=== PATIENT | male | born 1945 | race Caucasian/White ===

== ENCOUNTER 2022-01-15 02:47 | Inpatient (IN) | payer MEDICARE ==
[2022-01-15] MEDS ORDERED: Ondansetron PF 4 MG/2 ML Vial ONE ×2 (03:36→16:41)
[2022-01-15] MEDS ORDERED: Morphine 4 MG/ML VIAL ONE (03:36)
[2022-01-15 03:39] LABS: #Neutrophils 8.3 10x3/uL (1.5-8.4); %Basophils 0.4 % (0.0-2.0); %Eosinophils 0.4 % (0.0-6.0); %Lymphocytes 10.2 % (18.0-47.0); %Monocytes 9.5 % (0.0-10.0); %Neutrophils 79.2 % (40.0-75.0); Hemoglobin 10.9 g/dL (13.5-17.5); Mean Corpuscular HGB CONC 30.8 g/dL (32.0-36.0); Mean Corpuscular Hemoglobin 21.9 pg (27.0-33.0); Mean Corpuscular Volume 71.1 fl (81.2-95.1); Platelet Count 294 10x3/uL (150-450); Red Blood Cell (RBC) Count 4.98 10x6/uL (4.32-5.72); White Blood Cell (WBC) Count 10.5 10x3/uL (3.5-10.5)
[2022-01-15 03:48] LABS: ALT (SGPT) 17 U/L (8-55); AST (SGOT) 19 U/L (5-34); Albumin 4.4 g/dL (3.4-4.8); Alkaline Phosphatase 101 U/L (40-110); Anion Gap 15 mmol/L (10-20); BUN (Urea Nitrogen) 28 mg/dL (8.4-25.7); Bilirubin, Total 0.6 mg/dL (0.2-1.2); Calc. Creatinine Clearance 0 mL/min (70-130); Calcium 9.3 mg/dL (7.8-10.44); Carbon Dioxide 22 mmol/L (23-31); Chloride 107 mmol/L (98-107); Estimated GFR 39; Glucose 118 mg/dL (83-110); Potassium 3.8 mmol/L (3.5-5.1); Protein, Total 7.4 g/dL (5.8-8.1); Sodium 140 mmol/L (136-145)
[2022-01-15 05:31] LABS: Bilirubin Neg (Negative); Blood, Urine 250 (Negative); Clarity Clear (Clear); Glucose, Urine (Dipstick) Normal (Negative); Ketone, Urine 5 mg/dL (Negative); Leukocyte 100 (Negative); Nitrite Negative (Negative); Protein, Urine (Dipstick) 30 mg/dl (Neg-Trace); Urobilinogen Normal mg/dL (Less than 2)
[2022-01-15 05:50] LABS: Bacteria/HPF Rare-Few HPF (None Seen); Mucous/LPF 1+ LPF (<2+); RBC/HPF 21-50 HPF (0-3)
[2022-01-15] MEDS ORDERED: Morphine 2 MG/ML VIAL ONE (06:40)
[2022-01-15 08:44] LABS: PTT 25.9 sec (22.0-33.0); Prothrombin Time 11.2 sec (9.5-12.1)
[2022-01-15 08:59] VITALS: BMI 32.5
[2022-01-15] MEDS ORDERED: Iopamidol 370 76% 100 ML VIAL ONE (10:00)
[2022-01-15] MEDS ORDERED: Morphine 4 MG/ML VIAL SLOW IVP SCH (10:00)
[2022-01-15] MEDS ORDERED: hydrALAZINE 20 MG/ML VIAL SLOW IVP SCH (10:00)
[2022-01-15 10:03] LABS: SARS-CoV-2 NAA Rapid Test Not Detected (NotDetected)
[2022-01-15] MEDS ORDERED: Ondansetron PF 4 MG/2 ML Vial IVP PRN (10:06)
[2022-01-15] MEDS ORDERED: Ondansetron ODT 4 MG TAB PO PRN (10:06)
[2022-01-15] MEDS ORDERED: Acetaminophen 325 MG TAB PO PRN (10:06)
[2022-01-15] MEDS ORDERED: Pantoprazole 40 MG VIAL IVP SCH (10:09)
[2022-01-15] MEDS ORDERED: Morphine 4 MG/ML VIAL SLOW IVP PRN (10:10)
[2022-01-15] MEDS ORDERED: Electrolyte Replacement Protocol 1 EACH FS SCH (10:15)
[2022-01-15] MEDS: cefTRIAXone\\ROCEPHIN 2 GM in Sodium Chloride 0.9% 100 ML IVPB SCH (10:58)
[2022-01-15] MEDS: Sodium Chloride 0.9% 1,000 ML IV SCH ×2 (11:07→20:45)
[2022-01-15] MEDS: hydrALAZINE 20 MG/ML VIAL SLOW IVP PRN (16:26)
[2022-01-15] MEDS ORDERED: Fentanyl 100 MCG/2 ML VIAL ONE ×2 (16:41→17:57)
[2022-01-15] MEDS ORDERED: Dexamethasone 20 MG/5 ML VIAL ONE (16:41)
[2022-01-15] MEDS ORDERED: PROPOFOL 20 ML ONE (16:41)
[2022-01-15] MEDS ORDERED: Lidocaine 1% PF 5 ML VIAL ONE (16:42)
[2022-01-15] MEDS ORDERED: PHENYLEPHRINE-NS 100 MCG/ML 10 ML SYRINGE ONE ×2 (17:29→17:41)
[2022-01-15] MEDS ORDERED: Levofloxacin 500 mg/D5W 100 ml Premix Bag ONE (17:37)
[2022-01-15] MEDS ORDERED: Phenylephrine 10 MG/ML VIAL ONE (17:51)
[2022-01-15] MEDS ORDERED: Oxybutynin 5 MG TAB PO PRN (18:11)
[2022-01-15] MEDS ORDERED: HYDROcodone/Acetaminophen 5/325 mg Tablet PO PRN (18:11)
[2022-01-15] MEDS ORDERED: HYDROcodone/Acetaminophen 7.5/325 mg Tablet PO PRN ×2 (18:11)
[2022-01-15] MEDS ORDERED: Phenazopyridine HCl 95 MG TAB PO PRN (18:11)
[2022-01-15] MEDS: Docusate 100 MG CAP PO SCH (20:43)
[2022-01-16] MEDS: Sodium Chloride 0.9% 1,000 ML IV SCH ×4 (02:10→20:51)
[2022-01-16 05:02] LABS: #Monocytes 0.2 10x3/uL (0.0-1.1); #Neutrophils 5.4 10x3/uL (1.5-8.4); %Basophils 0.2 % (0.0-2.0); %Lymphocytes 6.7 % (18.0-47.0); %Monocytes 3.9 % (0.0-10.0); %Neutrophils 88.9 % (40.0-75.0); Hemoglobin 9.6 g/dL (13.5-17.5); Mean Corpuscular HGB CONC 30.4 g/dL (32.0-36.0); Mean Corpuscular Hemoglobin 21.8 pg (27.0-33.0); Mean Corpuscular Volume 71.7 fl (81.2-95.1); Platelet Count 275 10x3/uL (150-450); RBC Distribution Width 18.8 % (11.5-14.5); Red Blood Cell (RBC) Count 4.41 10x6/uL (4.32-5.72); White Blood Cell (WBC) Count 6.1 10x3/uL (3.5-10.5)
[2022-01-16 05:16] LABS: Phosphorus 4.4 mg/dL (2.3-4.7)
[2022-01-16 05:25] LABS: Anion Gap 12 mmol/L (10-20); BUN (Urea Nitrogen) 18 mg/dL (8.4-25.7); Calc. Creatinine Clearance 123 mL/min (70-130); Calcium 8.7 mg/dL (7.8-10.44); Carbon Dioxide 23 mmol/L (23-31); Chloride 109 mmol/L (98-107); Estimated GFR 91; Glucose 112 mg/dL (83-110); Potassium 4.4 mmol/L (3.5-5.1); Sodium 140 mmol/L (136-145)
[2022-01-16] MEDS ORDERED: Magnesium 2 GM/50 ML(in water) 2 GM in Premix Bag 1 BAG IVPB SCH (06:15)
[2022-01-16] MEDS ORDERED: Nitroglycerin 0.4 MG TAB (25 Tab Bottle) SL PRN (09:09)
[2022-01-16] MEDS: Docusate 100 MG CAP PO SCH ×2 (09:24→20:50)
[2022-01-16] MEDS: cefTRIAXone\\ROCEPHIN 2 GM in Sodium Chloride 0.9% 100 ML IVPB SCH (09:24)
[2022-01-16] MEDS: Tamsulosin HCl 0.4 MG CAP PO SCH (09:24)
[2022-01-16] MEDS: Dutasteride 0.5 MG CAP PO SCH (09:26)
[2022-01-16] MEDS ORDERED: Aspirin 81 mg Enteric Coated Tablet PO SCH (09:30)
[2022-01-16] MEDS ORDERED: Losartan Potassium 50 MG TAB PO SCH (09:30)
[2022-01-16] MEDS ORDERED: TICAGRELOR 90 MG TABLET PO SCH (09:30)
[2022-01-16] MEDS: Rosuvastatin 20 MG TAB PO SCH (20:50)
[2022-01-16] MEDS: TICAGRELOR 90 MG TABLET PO SCH (20:50)
[2022-01-16] MEDS: Stress 600 With Zinc 1 TAB PO SCH (20:50)
[2022-01-16] MEDS: Latanoprost 0.005% Ophth Soln 2.5 ml Bottle EA EYE SCH (20:50)
[2022-01-17 05:45] LABS: #Eosinphils 0.1 10x3/uL (0.0-0.5); #Monocytes 0.9 10x3/uL (0.0-1.1); #Neutrophils 5.1 10x3/uL (1.5-8.4); %Basophils 0.4 % (0.0-2.0); %Eosinophils 0.8 % (0.0-6.0); %Lymphocytes 22.1 % (18.0-47.0); %Monocytes 11.9 % (0.0-10.0); %Neutrophils 64.5 % (40.0-75.0); Hemoglobin 9.4 g/dL (13.5-17.5); Mean Corpuscular Hemoglobin 22.3 pg (27.0-33.0); Mean Corpuscular Volume 71.8 fl (81.2-95.1); Platelet Count 295 10x3/uL (150-450); RBC Distribution Width 19.2 % (11.5-14.5); Red Blood Cell (RBC) Count 4.22 10x6/uL (4.32-5.72); White Blood Cell (WBC) Count 7.9 10x3/uL (3.5-10.5)
[2022-01-17 06:03] LABS: Anion Gap 11 mmol/L (10-20); BUN (Urea Nitrogen) 25 mg/dL (8.4-25.7); Calc. Creatinine Clearance 119 mL/min (70-130); Calcium 8.5 mg/dL (7.8-10.44); Carbon Dioxide 25 mmol/L (23-31); Chloride 111 mmol/L (98-107); Estimated GFR 90; Glucose 100 mg/dL (83-110); Magnesium 2.1 mg/dL (1.6-2.6); Potassium 3.9 mmol/L (3.5-5.1); Sodium 143 mmol/L (136-145)
[2022-01-17] MEDS: Stress 600 With Zinc 1 TAB PO SCH ×2 (08:55→20:31)
[2022-01-17] MEDS: Ascorbic Acid 500 mg Chewable Tablet PO SCH (08:55)
[2022-01-17] MEDS: Finasteride 5 MG TAB PO SCH (08:55)
[2022-01-17] MEDS: Docusate 100 MG CAP PO SCH ×2 (08:55→20:31)
[2022-01-17] MEDS: Tamsulosin HCl 0.4 MG CAP PO SCH (08:55)
[2022-01-17] MEDS: Aspirin 81 mg Enteric Coated Tablet PO SCH (08:55)
[2022-01-17] MEDS: TICAGRELOR 90 MG TABLET PO SCH ×2 (08:56→20:31)
[2022-01-17] MEDS: Cholecalciferol 1,000 UNITS (25 MCG) TAB PO SCH (08:56)
[2022-01-17] MEDS: Ubidecarenone 50 MG CAP PO SCH (08:58)
[2022-01-17] MEDS: Dutasteride 0.5 MG CAP PO SCH (08:59)
[2022-01-17] MEDS ORDERED: Losartan Potassium 50 MG TAB PO SCH (09:00)
[2022-01-17] MEDS: Levothyroxine Sodium 100 MCG TAB PO SCH (09:06)
[2022-01-17] MEDS: cefTRIAXone\\ROCEPHIN 2 GM in Sodium Chloride 0.9% 100 ML IVPB SCH (09:11)
[2022-01-17] MEDS: Rosuvastatin 20 MG TAB PO SCH (20:31)
[2022-01-17] MEDS: Latanoprost 0.005% Ophth Soln 2.5 ml Bottle EA EYE SCH (20:32)
[2022-01-18] MEDS: hydrALAZINE 20 MG/ML VIAL SLOW IVP PRN (03:45)
[2022-01-18 05:09] LABS: #Eosinphils 0.2 10x3/uL (0.0-0.5); #Monocytes 0.9 10x3/uL (0.0-1.1); #Neutrophils 5.1 10x3/uL (1.5-8.4); %Basophils 0.5 % (0.0-2.0); %Eosinophils 2.3 % (0.0-6.0); %Lymphocytes 20.6 % (18.0-47.0); %Monocytes 11.5 % (0.0-10.0); %Neutrophils 64.7 % (40.0-75.0); Hemoglobin 9.9 g/dL (13.5-17.5); Mean Corpuscular HGB CONC 30.2 g/dL (32.0-36.0); Mean Corpuscular Hemoglobin 21.7 pg (27.0-33.0); Mean Corpuscular Volume 71.8 fl (81.2-95.1); Mean Platelet Volume 9.9 fl (7.4-10.4); Platelet Count 327 10x3/uL (150-450); RBC Distribution Width 19.1 % (11.5-14.5); Red Blood Cell (RBC) Count 4.57 10x6/uL (4.32-5.72); White Blood Cell (WBC) Count 7.8 10x3/uL (3.5-10.5)
[2022-01-18] MEDS ORDERED: Losartan Potassium 50 MG TAB PO SCH (05:15)
[2022-01-18 05:25] LABS: Anion Gap 12 mmol/L (10-20); BUN (Urea Nitrogen) 15 mg/dL (8.4-25.7); Calc. Creatinine Clearance 133 mL/min (70-130); Carbon Dioxide 24 mmol/L (23-31); Chloride 109 mmol/L (98-107); Estimated GFR 93; Glucose 103 mg/dL (83-110); Magnesium 1.9 mg/dL (1.6-2.6); Potassium 3.4 mmol/L (3.5-5.1); Sodium 142 mmol/L (136-145)
[2022-01-18] MEDS ORDERED: Magnesium 2 GM/50 ML(in water) 2 GM in Premix Bag 1 BAG IVPB SCH (05:45)
[2022-01-18] MEDS ORDERED: Potassium Chloride 20 MEQ TAB PO SCH (05:45)
[2022-01-18] MEDS: cefTRIAXone\\ROCEPHIN 2 GM in Sodium Chloride 0.9% 100 ML IVPB SCH (10:40)
[2022-01-18] MEDS: Ubidecarenone 50 MG CAP PO SCH (10:41)
[2022-01-18] MEDS: Ascorbic Acid 500 mg Chewable Tablet PO SCH (10:43)
[2022-01-18] MEDS: Cholecalciferol 1,000 UNITS (25 MCG) TAB PO SCH (10:43)
[2022-01-18] MEDS: Finasteride 5 MG TAB PO SCH (10:43)
[2022-01-18] MEDS: Aspirin 81 mg Enteric Coated Tablet PO SCH (10:43)
[2022-01-18] MEDS: Tamsulosin HCl 0.4 MG CAP PO SCH (10:44)
[2022-01-18] MEDS: TICAGRELOR 90 MG TABLET PO SCH (10:44)
[2022-01-18] MEDS: Docusate 100 MG CAP PO SCH (10:44)
[2022-01-18] MEDS: Dutasteride 0.5 MG CAP PO SCH (10:44)
[2022-01-18] MEDS: Levothyroxine Sodium 100 MCG TAB PO SCH (10:44)
[2022-01-18] MEDS: Stress 600 With Zinc 1 TAB PO SCH (10:48)
[2022-01-18 12:07] VITALS: TEMP 97.3
[2022-01-18 14:03] VITALS: BP 153/97
[2022-01-19] MEDS ORDERED: Losartan Potassium 50 MG TAB PO SCH (09:00)
[2022-01-22 12:10] LABS: CA Oxalate Dihydrate 10 % (.); CA Oxalate Monohydrate 85 % (.); Color Brown (.); Stone Weight 172 mg (.)
== END 2022-01-18 14:05 | disposition home or self-care (01) | DRG 660 ==
LOC: CSHERS 02:47 → CSHTELE 08:52
PROVIDERS: ADMIT Family Medicine; ATTEND Family Medicine
PROC: 0T778DZ Dilation of Left Ureter with Intraluminal Device, Via Natural or Artificial Opening Endoscopic (ICD-10-PCS; principal; 2022-01-15)
PROC: BT1F1ZZ Fluoroscopy of Left Kidney, Ureter and Bladder using Low Osmolar Contrast (ICD-10-PCS; 2022-01-15)
PROC: 0TCB8ZZ Extirpation of Matter from Bladder, Via Natural or Artificial Opening Endoscopic (ICD-10-PCS; 2022-01-15)
PROC: 0TC78ZZ Extirpation of Matter from Left Ureter, Via Natural or Artificial Opening Endoscopic (ICD-10-PCS; 2022-01-15)
DX: N13.30 Unspecified hydronephrosis (principal); D68.32 Hemorrhagic disorder due to extrinsic circulating anticoagulants; Z20.822 Contact with and (suspected) exposure to COVID-19; N21.0 Calculus in bladder; R31.9 Hematuria, unspecified; T45.525A Adverse effect of antithrombotic drugs, initial encounter; I10 Essential (primary) hypertension; E03.9 Hypothyroidism, unspecified; H40.9 Unspecified glaucoma; E78.5 Hyperlipidemia, unspecified; I25.10 Atherosclerotic heart disease of native coronary artery without angina pectoris; K46.9 Unspecified abdominal hernia without obstruction or gangrene; N17.9 Acute kidney failure, unspecified; N40.1 Benign prostatic hyperplasia with lower urinary tract symptoms; D64.9 Anemia, unspecified; K76.89 Other specified diseases of liver; R33.8 Other retention of urine; E66.01 Morbid (severe) obesity due to excess calories; Z95.5 Presence of coronary angioplasty implant and graft; I25.2 Old myocardial infarction; Z79.82 Long term (current) use of aspirin; Z79.899 Other long term (current) drug therapy; Z79.890 Hormone replacement therapy; Z90.49 Acquired absence of other specified parts of digestive tract; Z90.89 Acquired absence of other organs; Z82.49 Family history of ischemic heart disease and other diseases of the circulatory system; Z87.891 Personal history of nicotine dependence; Z68.32 Body mass index [BMI] 32.0-32.9, adult; Z98.41 Cataract extraction status, right eye; Z98.42 Cataract extraction status, left eye
CPT/HCPCS: 36415; 51600; 71275; 74174; 74176; 74430; 80048; 80053; 81003; 81015; 82365; 82550; 83735; 84100; 85025; 85610; 85730; 86850; 86900; 86901; 87086; 88300; 93005; 93010; 94760; 96374; 96375; 96376; C1769; C2617; C9113; J0360; J0696; J1100; J1956; J2270; J2370; J2405; J2704; J3010; J3475; J3490; J7050; Q9967; U0002